=== PATIENT | female | born 1985 | race Hispanic/Latino ===

== ENCOUNTER 2020-11-05 21:39 | Emergency (ER) | payer OTHER ==
[2020-11-05 22:50] VITALS: BP 127/91
--- NOTE | 2020-11-05 23:05 | Emergency Department Report ---
Blank Doc - Documentation Documentation: I attempted to see patient in exam room, she states that she was leaving to be seen somewhere else, she is ambulatory without difficulty
== END 2020-11-05 23:10 | disposition left against medical advice (07) ==
LOC: ED 21:39
DX: Z04.1 Encounter for examination and observation following transport accident (principal); Z53.21 Procedure and treatment not carried out due to patient leaving prior to being seen by health care provider; V87.7XXA Person injured in collision between other specified motor vehicles (traffic), initial encounter; Y93.89 Activity, other specified; Y92.488 Other paved roadways as the place of occurrence of the external cause; Y99.8 Other external cause status